=== PATIENT | male | born 1990 | race Asian ===

== ENCOUNTER 2022-04-27 12:07 | Emergency (ER) | payer OTHER, SELFPAY ==
[2022-04-27] VITALS (9 sets, daily range): BP systolic 136–145; BP diastolic 65–82; PULSE 84–102; RESP 18–31; TEMP 36.9; O2SAT 97–98; BMI 29.5
[2022-04-27 12:25] LABS: Add Manual Diff / Slide Review NO; Basophils Absolute Auto 0 /uL (0-100); Basophils Percent Auto 0.1 % (0-2); Eosinophils Absolute Auto 100 /uL (0-450); Eosinophils Percent Auto 0.4 % (2-4); Hematocrit 50.9 % (41-53); Lymphocytes Absolute Auto 500 /uL (1100-4500); Lymphocytes Percent Auto 3.1 % (25-40); Mean Corpuscular HGB Conc 33.3 % (30-36); Monocytes Absolute Auto 600 /uL (0-900); Monocytes Percent Auto 3.4 % (3-14); Neutrophils Absolute Auto 15900 /uL (1500-7000); Platelet Count 431 X10^3/uL (150-400); Red Blood Cell Count 5.85 X10^6/uL (4.5-5.9); Red Cell Distribution Width 12.6 % (11.6-14.8); White Blood Cell Count 17.1 X10^3/uL (4.5-11.0)
[2022-04-27 12:42] LABS: Alanine Aminotransferase 99 IU/L (<50); Albumin 5.1 g/dL (3.5-5.0); Albumin Globulin Ratio 1.1 (1.0-2.8); Alkaline Phosphatase 114 U/L (38-126); Aspartate Aminotransferase 61 IU/L (17-59); BUN Creatinine Ratio 21.7 (6-22); Bilirubin Total 1.2 mg/dL (0.2-1.3); Blood Urea Nitrogen 20 mg/dL (9-20); Calcium 9.7 mg/dL (8.4-10.2); Carbon Dioxide 28 mmol/L (22-32); Chloride 99 mmol/L (98-107); Estimated Glomerular Filt Rate > 60 mL/min (>60); Globulin 4.5 g/dL (1.7-4.1); Glucose 113 mg/dL (70-100); HEMOLYSIS < 15 (0-50); Lipase 122 U/L (23-300); Potassium 4.6 mmol/L (3.4-5.1); Sodium 138 mmol/L (137-145); Total Protein 9.6 g/dL (6.3-8.2)
--- NOTE | 2022-04-27 12:43 | ED_ITS ---
HPI - Abdominal Pain <Cailin Lewis PA-C - Last Filed: 04/27/22 15:12> General Chief Complaint: Abdominal Pain Stated Complaint: Sent by [facility] [place] N/V/D blood in vomit Time Seen by Provider: 04/27/22 12:30 Source: patient Mode of arrival: Ambulatory History of Present Illness HPI narrative: 32-year-old previously healthy male presents from [facility] with concern for abdominal pain beginning at 4:00 a.m., with multiple episodes of vomiting and watery diarrhea today as well as vomiting up bright red blood. Patient states he woke up at 4:00 a.m. with upper sharp abdominal pain and proceeded to have an episode of vomiting. He describes the pain as 5/or 6/10 currently but it was more when he was actively vomiting. He also had diarrhea, within a few hours he did try to go to work but vomited again and this time vomited up blood, he went home to try to rest and had another episode of vomiting with blood he says it was bright red and small amount he thinks not more than a couple of tbsp. He is continued to have constant abdominal pain that is generalized but mostly upper as well as sharp pain whenever he has vomiting, he is had about 3 episodes of watery diarrhea today. He endorses continued nausea that seems to be worse with movement. He denies any history of vomiting blood or any problems with abdominal pain, ulcers or GERD. He states he felt fine yesterday and had no changes in his activity or intake of suspicious foods. He states he did work out yesterday and did back exercises and has a little bit of soreness in his back but he thinks this is probably only due to the exercise. He has not had any viral illness symptoms recently and has been in his usual state of health. Patient endorses feeling fatigued but denies recent fevers, chills, dizziness, lightheadedness, chest pain, dysuria or any other symptoms. Patient denies [id number] medication use such as NSAIDs, also denies alcohol use except about once a month occasionally it states he never drinks heavily. Related Data Previous Rx's Medication Instructions Recorded ondansetron 4 mg disintegrating 4 mg PO Q8H PRN nausea and 04/27/22 tablet vomiting 7 days #21 tabs Allergies Allergy/AdvReac Type Severity Reaction Status Date / Time No Known Drug Allergies Allergy Verified 04/27/22 13:31 Review of Systems <Cailin Lewis PA-C - Last Filed: 04/27/22 15:12> Review of Systems Narrative: Unremarkable except as noted in the HPI Patient History <Cailin Lewis PA-C - Last Filed: 04/27/22 15:12> Social History Smoking Status: Current every day smoker Smoking Status: Current every day smoker tobacco type: vaping alcohol intake frequency: holidays/special occasions only Substance Use Type: does not use Exam <Cailin Lewis PA-C - Last Filed: 04/27/22 15:12> Narrative Exam Narrative: GENERAL: 32 year old patient appears stated age. Well-developed patient, in mild distress. HEAD: Atraumatic. Normocephalic. EYES: Pupils equal round and reactive. Extraocular motions intact. No scleral icterus. No injection or drainage. ENT: Nose without bleeding, purulent drainage. Throat with mild posterior pharynx erythema, no bleeding noted, no tonsillar hypertrophy or exudate. Airway patent. NECK: Trachea midline. Non tender CARDIOVASCULAR: Regular rate and rhythm without murmurs, gallops, or rubs. RESPIRATORY: Clear to auscultation. Breath sounds equal bilaterally. No wheezes, rales, or rhonchi. GASTROINTESTINAL: Abdomen soft, generalized tenderness, most tender epigastric and somewhat tender over the left upper and right upper quadrants, slight guarding but no rebound, nondistended, negative McBurney's point tenderness, negative Rovsing, negative Gomez's sign. EXTREMITIES: No edema or joint tenderness. BACK: Nontender without deformity or crepitance. No flank tenderness. NEURO: AOx3. SKIN: No rash or erythema of visible areas Initial Vital Signs Initial Vital Signs: Vital Signs Temperature 98.4 F 04/27/22 12:08 Pulse Rate 102 H 04/27/22 12:08 Respiratory Rate 18 04/27/22 12:08 Blood Pressure 145/82 H 04/27/22 12:08 Pulse Oximetry 98 04/27/22 12:08 Oxygen Delivery Method Room Air 04/27/22 12:08 <Luis A Morejon DO - Last Filed: 04/27/22 15:27> Initial Vital Signs Initial Vital Signs: Vital Signs Temperature 98.4 F 04/27/22 12:08 Pulse Rate 102 H 04/27/22 12:08 Respiratory Rate 18 04/27/22 12:08 Blood Pressure 145/82 H 04/27/22 12:08 Pulse Oximetry 98 04/27/22 12:08 Oxygen Delivery Method Room Air 04/27/22 12:08 Course <Cailin Lewis PA-C - Last Filed: 04/27/22 15:12> Course Course Narrative: Did discuss this patient with attending physician Dr. Morejon, given his fairly unremarkable CT suggestive of an enteritis, suspect that his leukocytosis may be reactive and not necessarily due to infectious process. His other labs are unremarkable, and he felt significantly better after administration of Zofran including improvement in his abdominal pain. Anticipate discharge with prescription for Zofran monitoring for new or worsening symptoms. 14:35 Orders Ordered: ED Orders 04/27/22 12:20 Complete Blood Count AUTO DIFF Stat Comprehensive Metabolic Panel Stat Lipase Stat Troponin & CK Cardiac Panel Stat 04/27/22 12:44 EKG-12 Lead Stat 04/27/22 12:48 XR chest 2V Stat 04/27/22 12:49 CT abdomen pelvis w con Stat 04/27/22 12:55 Covid-19 + FLU A/B + RSV - PCR Stat 04/27/22 14:01 Urine Culture Stat Urine Microscopic Stat Ondansetron HCl (Ondansetron 4 Mg/2 Ml Inj) 4 mg IV NOW PRN PRN Reason: Nausea And Vomiting Last Admin: 04/27/22 13:05 Dose: 4 mg Documented By: SHERYL Discontinued Medications Sodium Chloride (Normal Saline 0.9%) 1,000 mls @ 1,000 mls/hr IV BOLUS ONE Stop: 04/27/22 13:44 Last Infusion: 04/27/22 14:27 Dose: 0 mls/hr Documented By: Admin: 04/27/22 12:51 Dose: 1,000 mls/hr Documented By: SHERYL Vital Signs Vital signs: Vital Signs - 8 hr 04/27/22 12:08 04/27/22 12:58 04/27/22 13:00 Temperature 98.4 F Pulse Rate 102 H 102 H 100 H Respiratory Rate 18 Blood Pressure 145/82 H Pulse Oximetry 98 98 97 Oxygen Delivery Method Room Air 04/27/22 13:30 04/27/22 14:00 04/27/22 14:49 Temperature Pulse Rate 92 H 90 91 H Respiratory Rate 24 Blood Pressure Pulse Oximetry 97 98 98 Oxygen Delivery Method 04/27/22 14:50 04/27/22 14:50 04/27/22 15:00 Temperature Pulse Rate 84 Respiratory Rate 25 H Blood Pressure 139/65 139/66 Pulse Oximetry 98 Oxygen Delivery Method 04/27/22 15:00 04/27/22 15:15 04/27/22 15:15 Temperature Pulse Rate 87 93 H Respiratory Rate 26 H 31 H Blood Pressure 136/70 Pulse Oximetry 97 97 Oxygen Delivery Method <Luis A Morejon DO - Last Filed: 04/27/22 15:27> Orders Ordered: ED Orders 04/27/22 12:20 Complete Blood Count AUTO DIFF Stat Comprehensive Metabolic Panel Stat Lipase Stat Troponin & CK Cardiac Panel Stat 04/27/22 12:44 EKG-12 Lead Stat 04/27/22 12:48 XR chest 2V Stat 04/27/22 12:49 CT abdomen pelvis w con Stat 04/27/22 12:55 Covid-19 + FLU A/B + RSV - PCR Stat 04/27/22 14:01 Urine Culture Stat Urine Microscopic Stat Ondansetron HCl (Ondansetron 4 Mg/2 Ml Inj) 4 mg IV NOW PRN PRN Reason: Nausea And Vomiting Last Admin: 04/27/22 13:05 Dose: 4 mg Documented By: SHERYL Discontinued Medications Sodium Chloride (Normal Saline 0.9%) 1,000 mls @ 1,000 mls/hr IV BOLUS ONE Stop: 04/27/22 13:44 Last Infusion: 04/27/22 14:27 Dose: 0 mls/hr Documented By: Admin: 04/27/22 12:51 Dose: 1,000 mls/hr Documented By: SHERYL Vital Signs Vital signs: Vital Signs - 8 hr 04/27/22 12:08 04/27/22 12:58 04/27/22 13:00 Temperature 98.4 F Pulse Rate 102 H 102 H 100 H Respiratory Rate 18 Blood Pressure 145/82 H Pulse Oximetry 98 98 97 Oxygen Delivery Method Room Air 04/27/22 13:30 04/27/22 14:00 04/27/22 14:49 Temperature Pulse Rate 92 H 90 91 H Respiratory Rate 24 Blood Pressure Pulse Oximetry 97 98 98 Oxygen Delivery Method 04/27/22 14:50 04/27/22 14:50 04/27/22 15:00 Temperature Pulse Rate 84 Respiratory Rate 25 H Blood Pressure 139/65 139/66 Pulse Oximetry 98 Oxygen Delivery Method 04/27/22 15:00 04/27/22 15:15 04/27/22 15:15 Temperature Pulse Rate 87 93 H Respiratory Rate 26 H 31 H Blood Pressure 136/70 Pulse Oximetry 97 97 Oxygen Delivery Method MDM - Abdominal Pain <Cailin Lewis PA-C - Last Filed: 04/27/22 15:12> Differential Diagnosis Differential diagnosis: Likely abdominal pain, gastroenteritis, small bowel obstruction and other (viral illness, gastric ulcer) Medical Records Attestation: I reviewed the patient's medical records. Lab Data Attestation: I reviewed the patient's lab results. 04/27/22 12:20 04/27/22 12:20 Labs: Lab Results 04/27/22 04/27/22 04/27/22 Range/Units 12:20 12:20 12:20 WBC 17.1 H (4.5-11.0) X10^3/uL RBC 5.85 (4.5-5.9) X10^6/uL Hgb 17.0 (13.5-17.5) g/dL Hct 50.9 (41-53) % MCV 87.0 (80-100) fL MCH 29.0 (26-34) PG MCHC 33.3 (30-36) % RDW 12.6 (11.6-14.8) % Plt Count 431 H (150-400) X10^3/uL Neut % (Auto) 93.0 H (50-75) % Lymph % (Auto) 3.1 L (25-40) % [place] % (Auto) 3.4 (3-14) % Eos % (Auto) 0.4 L (2-4) % Baso % (Auto) 0.1 (0-2) % Neut # (Auto) 03507 H (8959-5977) /uL Lymph # (Auto) 500 L (5254-0074) /uL Brewster # (Auto) 600 (0-900) /uL Eos # (Auto) 100 (0-450) /uL Baso # (Auto) 0 (0-100) /uL Sodium 138 (137-145) mmol/L Potassium 4.6 (3.4-5.1) mmol/L Chloride 99 (98-107) mmol/L Carbon Dioxide 28 (22-32) mmol/L BUN 20 (9-20) mg/dL Creatinine 0.92 (0.66-1.25) mg/dL Estimated GFR > 60 (>60) mL/min BUN/Creatinine Ratio 21.7 (6-22) Glucose 113 H (70-100) mg/dL Calcium 9.7 (8.4-10.2) mg/dL Total Bilirubin 1.2 (0.2-1.3) mg/dL AST 61 H (17-59) IU/L ALT 99 H (<50) IU/L Alkaline Phosphatase 114 (38-126) U/L Total Creatine Kinase 210 H (55-170) U/L CK-MB (CK-2) 0.74 (<2.37) ng/mL CK-MB (CK-2) Rel Index 0.4 L (1.5-5.0) % Troponin I < 0.012 (0.01-0.034) ng/mL Total Protein 9.6 H (6.3-8.2) g/dL Albumin 5.1 H (3.5-5.0) g/dL Globulin 4.5 H (1.7-4.1) g/dL Albumin/Globulin Ratio 1.1 (1.0-2.8) Lipase 122 (23-300) U/L Urine RBC (0-5/HPF) Urine WBC (0-5/HPF) Ur Squamous Epith Cells (0-5/HPF) Urine Bacteria (None) SARS-CoV-2 (PCR) (Negative) Influenza A (RT-PCR) (NEGATIVE) Influenza B (RT-PCR) (NEGATIVE) RSV (PCR) (Negative) 04/27/22 04/27/22 Range/Units 12:55 14:01 WBC (4.5-11.0) X10^3/uL RBC (4.5-5.9) X10^6/uL Hgb (13.5-17.5) g/dL Hct (41-53) % MCV (80-100) fL MCH (26-34) PG MCHC (30-36) % RDW (11.6-14.8) % Plt Count (150-400) X10^3/uL Neut % (Auto) (50-75) % Lymph % (Auto) (25-40) % [place] % (Auto) (3-14) % Eos % (Auto) (2-4) % Baso % (Auto) (0-2) % Neut # (Auto) (2433-5279) /uL Lymph # (Auto) (5693-6702) /uL Brewster # (Auto) (0-900) /uL Eos # (Auto) (0-450) /uL Baso # (Auto) (0-100) /uL Sodium (137-145) mmol/L Potassium (3.4-5.1) mmol/L Chloride (98-107) mmol/L Carbon Dioxide (22-32) mmol/L BUN (9-20) mg/dL Creatinine (0.66-1.25) mg/dL Estimated GFR (>60) mL/min BUN/Creatinine Ratio (6-22) Glucose (70-100) mg/dL Calcium (8.4-10.2) mg/dL Total Bilirubin (0.2-1.3) mg/dL AST (17-59) IU/L ALT (<50) IU/L Alkaline Phosphatase (38-126) U/L Total Creatine Kinase (55-170) U/L CK-MB (CK-2) (<2.37) ng/mL CK-MB (CK-2) Rel Index (1.5-5.0) % Troponin I (0.01-0.034) ng/mL Total Protein (6.3-8.2) g/dL Albumin (3.5-5.0) g/dL Globulin (1.7-4.1) g/dL Albumin/Globulin Ratio (1.0-2.8) Lipase (23-300) U/L Urine RBC 0-1/hpf (0-5/HPF) Urine WBC None seen (0-5/HPF) Ur Squamous Epith Cells 0-1 /hpf (0-5/HPF) Urine Bacteria None seen (None) SARS-CoV-2 (PCR) Negative (Negative) Influenza A (RT-PCR) Flu a negative (NEGATIVE) Influenza B (RT-PCR) Flu b negative (NEGATIVE) RSV (PCR) Negative (Negative) Point of care testing: Urine Dip Bedside Urine Glucose Negative Bedside Urine Bilirubin - Negative Bedside Urine Ketone - Negative Urine Specific [place] 1.010 Bedside Urine Occult Blood - Negative Bedside Urine pH 6.0 Bedside Urine Protein +/- 15 Bedside Urine Urobilinogen 0.2 Bedside Urine Nitrite - Negative Bedside Urine Leukocytes - Negative Esterase Imaging Data CT scan - abdomen/pelvis: My Impression: I agree with the radiologist's interpretation Radiologist's Impression: [address] [address] [address] Scan Report Signed Patient: Christin Carlton MR#: [id number] : 1990 Acct:[id number] Age/Sex: 32 / M Date of Service: 04/27/22 Loc: ED Accession Number: [id number] ?? Procedure: CT abdomen pelvis w con Ordering Provider: Cailin Lewis P.A-C PROCEDURE:? CT ABDOMEN PELVIS W CON ? INDICATIONS:? N/V/D hematemesis, upper ABD pain, leukocytosis ? TECHNIQUE:? After the administration of intravenous contrast, axial sections acquired from the lung bases to the pubic symphysis.? Coronal and sagittal reformats were performed.? For radiation dose reduction, the following was used:? automated exposure control, adjustment of mA and/or kV according to patient size.? ? COMPARISON:? None. ? FINDINGS:? Image quality:? Good ? Lower chest:? Unremarkable.? Heart size is normal. ? Solid organs:? Possible hepatic steatosis.? The gallbladder is unremarkable by CT.? No pathologic biliary ductal dilation or pancreatic ductal dilation.? No splenomegaly.? No adrenal nodules.? Right renal cyst is present.? No hydronephrosis. ? Vessels and lymph nodes:? The main portal vein is patent.? No pathologic adenopathy identified by size criteria. ? Bowel and peritoneum:? The stomach is mildly distended.? No evidence of complete bowel obstruction.? Liquid colonic and distal small bowel contents.? The appendix is normal.? No pathologic ascites or drainable abscess. ? Body wall:? Small fat containing umbilical hernia. ? Pelvis:? Prostate is unremarkable.? Bladder is unremarkable. ? Bones:? No acute or suspicious osseous finding. ? IMPRESSION:? Normal appendix.? No abdominal abscess.? Primary liquid bowel contents suggestive of enterocolitis without high-grade inflammation.? No bowel obstruction.? Other incidental findings are described above.? ? ? Dictated by: Dav Hurley M.D. on 04/27/2022 at 13:40 ? ? Approved by: Dav Hurley M.D. on 04/27/2022 at 13:45?? Chest x-ray: My Impression: I agree with radiologist's interpretation Radiologist's Impression: [address] [id number] XRay Report Signed Patient: Christin Carlton MR#: [id number] : 1990 Acct:[id number] Age/Sex: 32 / M Date of Service: 04/27/22 Loc: ED Accession Number: [id number] ?? Procedure: XR chest 2V Ordering Provider: Cailin Lewis P.A-C PROCEDURE:? XR CHEST 2V ? INDICATIONS:? upper abd pain, N/V/D, leukocytosis, hematemesis ? TECHNIQUE:? 2 views of the chest were acquired.? ? COMPARISON:? None. ? FINDINGS:? ? Surgical changes and devices:? None.? ? Lungs and pleura:? Lungs are clear.? No pleural effusions or pneumothorax.? ? Mediastinum:? Mediastinal contours are normal.? Heart size is normal.? ? Bones and chest wall:? No suspicious bony abnormalities.? Soft tissues appear unremarkable.? ? IMPRESSION:? No acute cardiopulmonary disease. ? ? Dictated by: Ruby Mccarthy M.D. on 04/27/2022 at 14:05 ? ? Approved by: Ruby Mccarthy M.D. on 04/27/2022 at 14:06?? ECG Data Attestation: I personally reviewed and interpreted this ECG as follows: Interpretation: Heart rate 96, normal sinus rhythm with no ectopy or ST changes noted. Treatment and Disposition Shared decision making:: Shared decision-making was used in determining plan for evaluation in the emergency department today and plan for outpatient follow-up. MDM Narrative Medical decision making narrative: Previously healthy 32-year-old male presents with concern for 3 episodes of vomiting 3 episodes of watery diarrhea and abdominal pain since around 4:00 a.m. This morning as well as vomiting up small amount of red blood reportedly no more than 2 tbsp. Patient does have some abdominal tenderness on exam not suggestive of appendicitis and no exquisite tenderness although patient does endorse a 6/10 pain, tender mostly in the upper quadrants and a leukocytosis to 17,000 noted on his CBC, CT scan is obtained for further evaluation, chest x-ray is also performed, chest x-ray is unremarkable, CT scan is suggestive of a gastroenteritis without significant inflammatory process, otherwise unrema rkable. Patient had resolution of his nausea and no vomiting during the emergency department stay, also had almost complete resolution of his abdominal pain after administration of Zofran and a L of fluids. Patient was mildly tachycardic on presentation however this did resolve with fluids. His labs were not suggestive of acute blood loss, nor was his history. Viral panel was negative today for COVID flu and RSV. EKG and cardiac labs were unremarkable. Given the above most suspicious of the patient is suffering from a gastroenteritis, likely viral. On rechecking the patient just before discharge he states he is feeling almost 100% better. Patient is discharged with strict return precautions, plan for outpatient follow-up with PCP, and prescription for Zofran. Return precautions provided, follow-up plan discussed, all questions answered. <Luis A Morejon, DO - Last Filed: 04/27/22 15:27> Lab Data Labs: Lab Results 04/27/22 04/27/22 04/27/22 Range/Units 12:20 12:20 12:20 WBC 17.1 H (4.5-11.0) X10^3/uL RBC 5.85 (4.5-5.9) X10^6/uL Hgb 17.0 (13.5-17.5) g/dL Hct 50.9 (41-53) % MCV 87.0 (80-100) fL MCH 29.0 (26-34) PG MCHC 33.3 (30-36) % RDW 12.6 (11.6-14.8) % Plt Count 431 H (150-400) X10^3/uL Neut % (Auto) 93.0 H (50-75) % Lymph % (Auto) 3.1 L (25-40) % [place] % (Auto) 3.4 (3-14) % Eos % (Auto) 0.4 L (2-4) % Baso % (Auto) 0.1 (0-2) % Neut # (Auto) 73106 H (8155-7873) /uL Lymph # (Auto) 500 L (2552-9694) /uL [place]ster # (Auto) 600 (0-900) /uL Eos # (Auto) 100 (0-450) /uL Baso # (Auto) 0 (0-100) /uL Sodium 138 (137-145) mmol/L Potassium 4.6 (3.4-5.1) mmol/L Chloride 99 (98-107) mmol/L Carbon Dioxide 28 (22-32) mmol/L BUN 20 (9-20) mg/dL Creatinine 0.92 (0.66-1.25) mg/dL Estimated GFR > 60 (>60) mL/min BUN/Creatinine Ratio 21.7 (6-22) Glucose 113 H (70-100) mg/dL Calcium 9.7 (8.4-10.2) mg/dL Total Bilirubin 1.2 (0.2-1.3) mg/dL AST 61 H (17-59) IU/L ALT 99 H (<50) IU/L Alkaline Phosphatase 114 (38-126) U/L Total Creatine Kinase 210 H (55-170) U/L CK-MB (CK-2) 0.74 (<2.37) ng/mL CK-MB (CK-2) Rel Index 0.4 L (1.5-5.0) % Troponin I < 0.012 (0.01-0.034) ng/mL Total Protein 9.6 H (6.3-8.2) g/dL Albumin 5.1 H (3.5-5.0) g/dL Globulin 4.5 H (1.7-4.1) g/dL Albumin/Globulin Ratio 1.1 (1.0-2.8) Lipase 122 (23-300) U/L Urine RBC (0-5/HPF) Urine WBC (0-5/HPF) Ur Squamous Epith Cells (0-5/HPF) Urine Bacteria (None) SARS-CoV-2 (PCR) (Negative) Influenza A (RT-PCR) (NEGATIVE) Influenza B (RT-PCR) (NEGATIVE) RSV (PCR) (Negative) 04/27/22 04/27/22 Range/Units 12:55 14:01 WBC (4.5-11.0) X10^3/uL RBC (4.5-5.9) X10^6/uL Hgb (13.5-17.5) g/dL Hct (41-53) % MCV (80-100) fL MCH (26-34) PG MCHC (30-36) % RDW (11.6-14.8) % Plt Count (150-400) X10^3/uL Neut % (Auto) (50-75) % Lymph % (Auto) (25-40) % [place] % (Auto) (3-14) % Eos % (Auto) (2-4) % Baso % (Auto) (0-2) % Neut # (Auto) (1825-6763) /uL Lymph # (Auto) (0216-4065) /uL Brewster # (Auto) (0-900) /uL Eos # (Auto) (0-450) /uL Baso # (Auto) (0-100) /uL Sodium (137-145) mmol/L Potassium (3.4-5.1) mmol/L Chloride (98-107) mmol/L Carbon Dioxide (22-32) mmol/L BUN (9-20) mg/dL Creatinine (0.66-1.25) mg/dL Estimated GFR (>60) mL/min BUN/Creatinine Ratio (6-22) Glucose (70-100) mg/dL Calcium (8.4-10.2) mg/dL Total Bilirubin (0.2-1.3) mg/dL AST (17-59) IU/L ALT (<50) IU/L Alkaline Phosphatase (38-126) U/L Total Creatine Kinase (55-170) U/L CK-MB (CK-2) (<2.37) ng/mL CK-MB (CK-2) Rel Index (1.5-5.0) % Troponin I (0.01-0.034) ng/mL Total Protein (6.3-8.2) g/dL Albumin (3.5-5.0) g/dL Globulin (1.7-4.1) g/dL Albumin/Globulin Ratio (1.0-2.8) Lipase (23-300) U/L Urine RBC 0-1/hpf (0-5/HPF) Urine WBC None seen (0-5/HPF) Ur Squamous Epith Cells 0-1 /hpf (0-5/HPF) Urine Bacteria None seen (None) SARS-CoV-2 (PCR) Negative (Negative) Influenza A (RT-PCR) Flu a negative (NEGATIVE) Influenza B (RT-PCR) Flu b negative (NEGATIVE) RSV (PCR) Negative (Negative) Point of care testing: Urine Dip Bedside Urine Glucose Negative Bedside Urine Bilirubin - Negative Bedside Urine Ketone - Negative Urine Specific [place] 1.010 Bedside Urine Occult Blood - Negative Bedside Urine pH 6.0 Bedside Urine Protein +/- 15 Bedside Urine Urobilinogen 0.2 Bedside Urine Nitrite - Negative Bedside Urine Leukocytes - Negative Esterase Discharge Plan Departure Patient Disposition: Home Clinical Impression: Gastroenteritis, Nausea & vomiting, Diarrhea Instructions: DI for Viral Gastroenteritis -- Adult Activity Restrictions/Additional Instructions: Thank you for letting us be part of your care today in the emergency department. Your labs today were looking okay although you did have an elevated white count which can sometimes be due to infection but it can also be due to stress in the body such as due to vomiting and diarrhea and general illness. Your imaging today is suggestive of a gastroenteritis I suspect that this is probably viral. This is something that should resolve on its own in time and should not require any antibiotics, I am prescribing medication called Ale for you which she received today in the emergency department and found very helpful for your nausea. We did test due for some common viruses including flu and COVID and these were negative today. There are number of other viruses that could potentially be causing your symptoms. It is important that if you have new or worsening symptoms over the next few days including worsening abdominal pain, persistent abdominal pain, persistent diarrhea or vomiting difficulty keeping down food or fluids or new fevers and chills that you seek re-evaluation. It is okay to take some Tylenol if needed for abdominal discomfort I would stay away from ibuprofen given that you had a small amount of bleeding with vomiting recently. Regarding this I think it is possible that you had some bleeding due to the fact they were vomiting and you may have irritated some of the lining in your esophagus or your throat. Your labs did not suggest significant blood loss, and you have not continued to have any bleeding/vomiting. There is no evidence of an emergent or life threatening illness at this time, but follow up with your doctor in 1-2 days is recommended nonetheless to continue to rule out serious underlying causes of your symptoms. Please call the office for an appointment. Please return to the Emergency Department for any worsening or pe rsistent symptoms. Please take medications as directed. Prescriptions: New ondansetron 4 mg tablet,disintegrating 4 mg PO Q8H PRN (Reason: nausea and vomiting) 7 Days Qty: 21 0RF Referrals: Provider,Miller AMAYA [Primary Care Provider] - Stand Alone Forms: Patient Portal/API <Luis A Morejon DO - Last Filed: 04/27/22 15:27> Cosign ED Attending Cosignature Attestation: Dr Morejon Co-Sign Statement: I was available for consultation during this patient's emergency department visit. This chart is signed by myself for administrative purposes only. I did not have direct contact with this patient during this visit. They were seen independently by the APC.
--- NOTE | 2022-04-27 12:48 | DI.RAD.S_ITS ---
PROCEDURE: XR CHEST 2V INDICATIONS: upper abd pain, N/V/D, leukocytosis, hematemesis TECHNIQUE: 2 views of the chest were acquired. COMPARISON: None. FINDINGS: Surgical changes and devices: None. Lungs and pleura: Lungs are clear. No pleural effusions or pneumothorax. Mediastinum: Mediastinal contours are normal. Heart size is normal. Bones and chest wall: No suspicious bony abnormalities. Soft tissues appear unremarkable. IMPRESSION: No acute cardiopulmonary disease. Dictated by: Ruby Mccarthy M.D. on 04/27/2022 at 14:05 Approved by: Ruby Mccarthy M.D. on 04/27/2022 at 14:06
--- NOTE | 2022-04-27 12:49 | DI.CT.S_ITS ---
PROCEDURE: CT ABDOMEN PELVIS W CON INDICATIONS: N/V/D hematemesis, upper ABD pain, leukocytosis TECHNIQUE: After the administration of intravenous contrast, axial sections acquired from the lung bases to the pubic symphysis. Coronal and sagittal reformats were performed. For radiation dose reduction, the following was used: automated exposure control, adjustment of mA and/or kV according to patient size. COMPARISON: None. FINDINGS: Image quality: Good Lower chest: Unremarkable. Heart size is normal. Solid organs: Possible hepatic steatosis. The gallbladder is unremarkable by CT. No pathologic biliary ductal dilation or pancreatic ductal dilation. No splenomegaly. No adrenal nodules. Right renal cyst is present. No hydronephrosis. Vessels and lymph nodes: The main portal vein is patent. No pathologic adenopathy identified by size criteria. Bowel and peritoneum: The stomach is mildly distended. No evidence of complete bowel obstruction. Liquid colonic and distal small bowel contents. The appendix is normal. No pathologic ascites or drainable abscess. Body wall: Small fat containing umbilical hernia. Pelvis: Prostate is unremarkable. Bladder is unremarkable. Bones: No acute or suspicious osseous finding. IMPRESSION: Normal appendix. No abdominal abscess. Primary liquid bowel contents suggestive of enterocolitis without high-grade inflammation. No bowel obstruction. Other incidental findings are described above. Dictated by: Dav Hurley M.D. on 04/27/2022 at 13:40 Approved by: Dav Hurley M.D. on 04/27/2022 at 13:45
[2022-04-27] MEDS: SODIUM CHLORIDE 0.9% 1,000 ML 1000 ML IV (12:51)
[2022-04-27 13:03] LABS: Creatine Kinase 210 U/L (55-170)
[2022-04-27] MEDS: ONDANSETRON 4 MG/2 ML INJ IV (13:05)
[2022-04-27 13:16] LABS: Troponin I < 0.012 ng/mL (0.01-0.034)
[2022-04-27 13:19] LABS: CKMB % Relative Index 0.4 % (1.5-5.0); Creatine Kinase MB 0.74 ng/mL (<2.37)
[2022-04-27 13:39] LABS: Influenza A - CEPHEID Flu A NEGATIVE (NEGATIVE); Influenza B - CEPHEID Flu B NEGATIVE (NEGATIVE); Respiratory Syncytial Virus Negative (Negative)
[2022-04-27 13:51] LABS: COVID-19 CEPHEID 4-PLEX PCR Negative (Negative)
[2022-04-27 14:26] LABS: Bacteria Urine None Seen; RBC Urine 0-1/HPF (0-5/HPF); Squamous Epithelial Cell Urine 0-1 /HPF (0-5/HPF); WBC Urine None Seen (0-5/HPF)
== END 2022-04-27 15:27 | disposition home or self-care (01) ==
PROVIDERS: Emergency Medicine; Emergency Provider Student in an Organized Health Care Education/Training Program
DX: K52.9 Noninfective gastroenteritis and colitis, unspecified (principal); R11.2 Nausea with vomiting, unspecified; R10.10 Upper abdominal pain, unspecified; Z20.822 Contact with and (suspected) exposure to COVID-19
CPT/HCPCS: 0241U; 36415; 71046; 74177; 80053; 81003; 81015; 82550; 82553; 83690; 84484; 85025; 87086; 93005; 93010; 96361; 96374; 99284; J2405; Q9967